=== PATIENT | male | born 1940 | race African-American/Black ===

== ENCOUNTER 2019-11-10 03:37 | Emergency (ER) | payer OTHER ==
[~2019-11-10] VITALS: Ht 185.4 cm; Wt 79.4 kg
[2019-11-10 04:34] LABS: URINE BILIRUBIN NEGATIVE (Negative); URINE BLOOD TRACE (Negative); URINE CLARITY CLEAR; URINE COLOR YELLOW; URINE GLUCOSE-RANDOM* NEGATIVE (Negative); URINE KETONES TRACE (Negative); URINE LEUKOCYTES-REFLEX 3+ (Negative); URINE NITRITE-REFLEX POSITIVE (Negative); URINE PROTEIN (DIPSTICK) TRACE (Negative)
[2019-11-10 04:46] LABS: ABSOLUTE NEUTROPHILS 5.7 thou/uL (1.4-8.2); BASOPHILS 0.8 % (0.0-2.0); EOSINOPHILS 2.1 % (0.0-3.0); HEMATOCRIT 31.4 % (42.0-52.0); HEMOGLOBIN 10.4 gm/dL (14.0-18.0); LYMPHOCYTES 21.1 % (24.0-44.0); MCHC 33.2 g/dL (28.0-37.0); MCV 87.3 fL (80.0-100.0); MONOCYTES 7.6 % (1.0-8.0); PLATELET COUNT 359 thou/uL (150-400); POLYS 68.4 % (36.0-66.0); RBC 3.59 mil/uL (4.50-6.00); WBC 8.3 thou/uL (4.0-11.0)
[2019-11-10 04:46] LABS: CASTS None Seen /LPF (None Seen); MUCUS 0-3 Light strn/LPF (None Seen); SQUAMOUS None Seen /LPF (0-3)
[2019-11-10 04:47] LABS: BACTERIA-REFLEX >30 Many /HPF (None Seen); CRYSTALS None Seen /LPF (None Seen); URINE WBC-REFLEX >25 Many /HPF (0-5)
[2019-11-10 04:54] LABS: CALCIUM 9.3 mg/dL (8.5-10.1); CREATININE 1.2 mg/dL (0.7-1.3); POTASSIUM 5.2 mmol/L (3.5-5.1)
[2019-11-10] MEDS ORDERED: KEFLEX500 M1 PO (06:36)
[2019-11-10 08:55] VITALS: BP 121/61
== END 2019-11-10 08:55 ==
LOC: ER 03:37
PROVIDERS: Emergency Medicine
DX: T83.511A Infection and inflammatory reaction due to indwelling urethral catheter, initial encounter (principal); K59.00 Constipation, unspecified